=== PATIENT | female | born 1950 | race Caucasian/White ===

== ENCOUNTER 2022-01-27 09:14 | Emergency (ER) | payer MEDICARE ==
--- NOTE | 2022-01-27 09:46 | ED Physician Documentation ---
PD HPI URI - Stated complaint Stated Complaint: SOA - Chief complaint Chief Complaint: Resp - History obtained from History obtained from: Patient - History of Present Illness Timing - onset: How many days ago (5) Timing duration: Days (5) Timing details: Gradual onset, Still present Associated symptoms: Chills, Dry cough, Chest pain, Dyspnea. No: Fever, Hemoptysis, Bilateral edema Contributing factors: Sick contact. No: Immunocompromised, COPD / asthma Improves by: No: Medication Worsened by: Activity Similar symptoms before: Has not had sx before Recently seen: Not recently seen Review of Systems Constitutional: reports: Chills, Myalgias. denies: Fever Nose: reports: Rhinorrhea / runny nose, Congestion Throat: denies: Sore throat Cardiac: denies: Chest pain / pressure Respiratory: reports: Dyspnea, Cough, Wheezing GI: reports: Nausea. denies: Abdominal Pain, Vomiting, Diarrhea Neurologic: reports: Generalized weakness. denies: Headache PD PAST MEDICAL HISTORY - Past Medical History Respiratory: None Neuro: None - Present Medications Home Medications: Ambulatory Orders Medication Instructions Recorded Confirmed Albuterol 2.5 mg INH Q4H PRN #30 ml 01/27/22 Benzonatate [Tessalon] 100 mg PO TID PRN #20 cap 01/27/22 dexAMETHasone [Decadron] 4 mg PO DAILY #5 tablet 01/27/22 - Allergies Allergies/Adverse Reactions: Allergies Allergy/AdvReac Type Severity Reaction Status Date / Time amlodipine Allergy Dizziness Verified 01/27/22 09:30 PD ED PE NORMAL - Vitals Vital signs reviewed: Yes - General General: Alert and oriented X 3, No acute distress, Well developed/nourished - HEENT HEENT: Pharynx benign - Neck Neck: Supple, no meningeal sign, No adenopathy - Cardiac Cardiac: RRR, No murmur - Respiratory Respiratory: No: Clear bilaterally (wheezing with some prolonged expiratory phase. ) - Abdomen Abdomen: Soft, Non tender - Derm Derm: Normal color, Warm and dry - Extremities Extremities: No edema, No calf tenderness / cord - Neuro Neuro: Alert and oriented X 3, No motor deficit, Normal speech Results - Vitals Vitals: Oxygen O2 Source Room air PD Medical Decision Making - ED course Complexity details: re-evaluated patient, considered differential, d/w patient Departure - Departure Disposition: 01 Home, Self Care Clinical Impression: Exacerbation of asthma Upper respiratory infection Qualifiers: URI type: unspecified URI Qualified Code(s): J06.9 - Acute upper respiratory infection, unspecified Condition: Stable Record reviewed to determine appropriate education?: Yes Instructions: ED URI Viral W Wheezing Prescriptions: Albuterol 2.5 mg INH Q4H PRN #30 ml PRN Reason: Wheezing dexAMETHasone [Decadron] 4 mg PO DAILY #5 tablet Benzonatate [Tessalon] 100 mg PO TID PRN #20 cap PRN Reason: Cough Comments: Use the albuterol nebulizer or inhaler 4 times a day regularly and then extra times if needed for wheezing over the next several days to week. Decadron steroid daily for 5 more days. Add benzonatate if needed for cough. You can continue the guaifenesin to help with congestion as well. Diphenhydramine/Benadryl could help with some of the congestion as well. Recheck if not improving well over the next couple of days and there should be some improvement into this afternoon as the steroids started helping out. Return as needed. I sent your prescriptions to the [facility] pharmacy here in [place]. Discharge Date/Time: 01/27/22 11:51
[2022-01-27] MEDS ORDERED: DEXAMETHASONE 10 MG/ML VIAL PO STA (10:01)
[2022-01-27] MEDS ORDERED: diphenhydrAMINE ELIXIR 25 MG/10 ML UDC PO STA (10:01)
[2022-01-27] MEDS ORDERED: IPRATROPIUM/ALBUTEROL 3 ML NEB INH STA (10:01)
[2022-01-27] MEDS ORDERED: CHERRY SYRUP 10 ML UDC PO ONE (10:01)
[2022-01-27] MEDS ORDERED: BENZONATATE 100 MG CAPSULE PO STA (10:01)
[2022-01-27 11:41] VITALS: BP 145/63
== END 2022-01-27 11:51 | disposition home or self-care (01) ==
LOC: ED 09:14
DX: J06.9 Acute upper respiratory infection, unspecified (principal); J45.901 Unspecified asthma with (acute) exacerbation
CPT/HCPCS: 94640; 94664; 99282; 99283; A9270